=== PATIENT | male | born 1980 | race Two or more races ===

== ENCOUNTER 2024-06-07 04:19 | Inpatient (IN) | payer MEDICAID, OTHER ==
[~2024-06-07] VITALS: Ht 182.9 cm; Wt 86.0 kg
--- NOTE | 2024-06-07 04:40 | ED.PDOC ---
HPI Comments 44-year-old male came to ER for chest pains. Patient states he has been having intermittent episodes of chest pains for the past few months, he has not seen a sld teacher regarding this issue. Patient had a disagreement with his earlier and he got kicked out of the house. He started having left sided chest pains again which worsened prompting him to go to the ER. Patient is intoxicated with alcohol at this time of care. Chief Complaint: Chest Pain Time Seen by MD: 04:39 Reviewed Notes: Cook Chill Technician Notes Allergies: Coded Allergies: NO KNOWN ALLERGIES (Unverified , 06/07/24) Information Source: Patient Mode of Arrival: EMS Severity: Moderate Timing: Hours Duration: Intermittent Prehospital treatment: None Past Medical History PAST MEDICAL HISTORY: Denies Surgical History: Denies all surgeries Family History Family History: Reviewed,noncontributory to illness Social History Smoker: Non-Smoker Alcohol: Denies ETOH Use Drugs: Denies Drug Use Lives In: Home Constitutional: denies: chills, diaphoresis, fatigue, fever, malaise, sweats, weakness, others EENTM: denies: blurred vision, double vision, ear bleeding, ear discharge, ear drainage, ear pain, ear ringing, eye pain, eye redness, hearing loss, mouth pain, mouth swelling, nasal discharge, nose bleeding, nose congestion, nose pain, photophobia, tearing, throat pain, throat swelling, voice changes, others Respiratory: denies: cough, hemoptysis, orthopnea, SOB at rest, shortness of breath, SOB with excertion, stridor, wheezing, others Cardiovascular: reports: chest pain; denies: dizzy spells, diaphoresis, Dyspnea on exertion, edema, irregular heart beat, left arm pain, lightheadedness, palpitations, PND, syncope, others Gastrointestinal: denies: abdomen distended, abdominal pain, blood streaked bowels, constipated, diarrhea, dysphagia, difficulty swallowing, hematemesis, melena, nausea, poor appetite, poor fluid intake, rectal bleeding, rectal pain, vomiting, others Genitourinary: denies: burning, dysuria, flank pain, frequency, hematuria, incontinence, penile discharge, penile sore, pain, testicle pain, testicle swelling, urgency, others Neurological: denies: dizziness, fainting, headache, left sided numbness, left sided weakness, numbness, paresthesia, pre-existing deficit, right sided numbness, right sided weakness, seizure, speech problems, tingling, tremors, weakness, others Musculoskeletal: denies: back pain, gout, joint pain, joint swelling, muscle pain, muscle stiffness, neck pain, others Integumetry: denies: bruises, change in color, change in hair/nails, dryness, laceration, lesions, lumps, rash, wounds, others Allergic/Immunocompromised: denies: Difficulty Healing, Frequent Infections, Hives, Itching, others Hematologic/Lymphatic: denies: anemia, blood clots, easy bleeding, easy bruising, swollen glands, others Endocrine: denies: excessive hunger, excessive sweating, excessive thirst, excessive urination, flushing, intolerance to cold, intolerance to heat, unexplained weight gain, unexplained weight loss, others Psychiatric: reports: anxiety; denies: bipolar disorder, depression, hopeless, panic disorder, schizophrenia, sleepless, suicidal, others Physical Exam General Appearance: No Apparent Distress, Normal HEENT: Normal ENT Inspection, Pharynx Normal, TMs Normal Neck: Full Range of Motion, Non-Tender, Normal, Normal Inspection Respiratory: Chest Non-Tender, Lungs Clear, No Accessory Muscle Use, No Respiratory Distress, Normal Breath Sounds Cardiovascular: No Edema, No JVD, No Murmur, No Gallop, Normal Peripheral Pulses, Regular Rate/Rhythm Breast Exam: Deferred Gastrointestinal: No Organomegaly, Non Tender, No Pulsatile Mass, Normal Bowel Sounds, Soft Genitalia: Deferred Pelvic: Deferred Rectal: Deferred Extremities: No calf tenderness, Normal capillary refill, Normal inspection, Normal range of motion, Non-tender, No pedal edema Musculoskeletal : Apperance: Normal 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 Was a procedure done?: No CP Differential Dx Differential Diagnosis: Angina, Anxiety / Panic Attack Differential Diagnosis: Angina, Chest Wall Pain, Costochondritis, Esophageal reflux/spasm, Gastritis, Myocardial Infarction X-Ray, Labs, Meds, VS Vital Signs Date Time Temp Pulse Resp B/P (MAP) Pulse Ox O2 Delivery O2 Flow Rate FiO2 06/07/24 04:19 98.6 98 16 148/84 (105) 98 06/07/24 04:19 52 Lab Test 06/07/24 04:41 Range/Units White Blood Count 5.0 4.4-10.8 10^3/uL Red Blood Count 4.27 L 4.5-5.90 10^6/uL Hemoglobin 14.7 13.5-17.5 g/dL Hematocrit 44.1 41.0-53.0 % Mean Corpuscular Volume 103.1 H 80.0-100.0 fL Mean Corpuscular Hemoglobin 34.4 H 28.0-32.0 pg Mean Corpuscular Hemoglobin Concent 33.4 32.0-36.0 g/dL Red Cell Distribution Width 13.0 11.8-14.3 % Platelet Count 204 140-450 10^3/uL Mean Platelet Volume 7.1 6.9-10.8 fL Neutrophils (%) (Auto) 32.7 L 37.0-80.0 % Lymphocytes (%) (Auto) 53.8 H 10.0-50.0 % Monocytes (%) (Auto) 10.9 0.0-12.0 % Eosinophils (%) (Auto) 1.7 0.0-7.0 % Basophils (%) (Auto) 0.9 0.0-2.0 % Neutrophils # (Auto) 1.6 1.6-8.6 10 ^3/uL Lymphocytes # (Auto) 2.7 0.4-5.4 10 ^3/uL Monocytes # (Auto) 0.5 0-1.3 10 ^3/uL Eosinophils # (Auto) 0.1 0-0.8 10 ^3/uL Basophils # (Auto) 0 0-0.2 10 ^3/uL Nucleated Red Blood Cells 0.2 % Sodium Level 137 136-145 mmol/L Potassium Level 4.3 3.5-5.1 mmol/L Chloride Level 105 98-107 mmol/L Carbon Dioxide Level 18 L 20-31 mmol/L Anion Gap 14 5-15 Blood Urea Nitrogen 8 L 9-23 mg/dL Creatinine 1.21 0.700-1.30 mg/dL Glomerular Filtration Rate Calc 75 >90 mL/min BUN/Creatinine Ratio 6.6 L 10.0-20.0 Serum Glucose 106 74-106 mg/dL Calcium Level 9.4 8.7-10.4 mg/dL Troponin I High Sensitivity 26 </=54 ng/L Plasma/Serum Blood Alcohol 295.1 H <10 mg/dL Time of 1ST Reevaluation: 04:31 Reevaluation 1ST: Unchanged Patient Education/Counseling: Diagnosis, Treatment Family Education/Counseling: No Family Present Departure 1 Departure Time of Disposition: 05:49 (Patient presented with chest pain that was concerning for possible STEMI, ACS, PE, Pneumonia, Muscle Strain, COPD, Dissection. Data: 1. I ordered and reviewed the result of at least 3 labs including a CBC, BMP, and Troponin. 2. I independently interpreted the following tests: EKG which shows sinus arrhythmia and Chest X-ray which shows pleural effusions.Risk:This patient has a high risk of morbidity due to further diagnostic testing or treatment and may suffer from an acute cardiac or res piratory disorder. Workup reveals concern for ACS and patient should be admitted for further workup and possible expert consultation. ) Impression: Primary Impression: Acute chest pain Additional Impression: Alcohol intoxication Qualified Codes: F10.920 - Alcohol use, unspecified with intoxication, uncomplicated Disposition: 09 ADMITTED INPATIENT Admit to: Med Surg Condition: Serious Critical Care Note Critical Care Time?: No Stability Stability form required: No Heart Score Heart Score: Heart Score Response (Comments) Value History Moderate Suspicious 1 EKG Repolarization Disturb 1 Age 45-64 1 Risk Factors 1 or 2 risk factors 1 Troponin 1-2 x's Normal limit 1 Total 5 I personally scribed for KATHARINE COLEY MD ([email or web address]) on 06/07/24 at 04:40. Electronically submitted by Mikhail Kim ([facility] KATHARINE COLEY MD Jun 07, 2024 04:40
[2024-06-07 04:56] LABS: Basophils # (auto) 0 10 ^3/uL (0-0.2); Basophils % (auto) 0.9 % (0.0-2.0); Eosinophils # (auto) 0.1 10 ^3/uL (0-0.8); Eosinophils % (auto) 1.7 % (0.0-7.0); Hematocrit 44.1 % (41.0-53.0); Hemoglobin 14.7 g/dL (13.5-17.5); Lymphocytes # (auto) 2.7 10 ^3/uL (0.4-5.4); Lymphocytes % (auto) 53.8 % (10.0-50.0); Mean Corpuscular Hemoglobin 34.4 pg (28.0-32.0); Mean Corpuscular Hgb Conc. 33.4 g/dL (32.0-36.0); Mean Corpuscular Volume 103.1 fL (80.0-100.0); Monocytes # (auto) 0.5 10 ^3/uL (0-1.3); Monocytes % (auto) 10.9 % (0.0-12.0); Neutrophils # (auto) 1.6 10 ^3/uL (1.6-8.6); Neutrophils % (auto) 32.7 % (37.0-80.0); Nucleated Red Blood Cells % 0.2 %; Platelet Count (auto) 204 10^3/uL (140-450); Red Blood Cells 4.27 10^6/uL (4.5-5.90)
--- NOTE | 2024-06-07 05:08 | DVH ---
EXAM: XY CHEST PORTABLE HISTORY: chest pain COMPARISON: None TECHNIQUE: Portable upright AP view of the chest was performed. FINDINGS: There is mild right basilar opacity and mildly elevated right hemidiaphragm. No pneumothorax or pulmo nary edema. There is central peribronchial thickening. The heart is not enlarged. IMPRESSION: 1. Mild right basilar opacity and mildly elevated right hemidiaphragm may be due to chronic scarring versus mild atelectasis and small pleural effusion. Comparison with old films would be necessary to m robert this distinction. 2. Central peribronchial thickening consistent with reactive airways disease.
[2024-06-07 05:12] LABS: Anion Gap 14 (5-15); Chloride 105 mmol/L (98-107); Potassium 4.3 mmol/L (3.5-5.1); Sodium 137 mmol/L (136-145)
[2024-06-07 05:13] LABS: Calcium 9.4 mg/dL (8.7-10.4)
[2024-06-07 05:18] LABS: BUN/Creatinine Ratio 6.6 (10.0-20.0); Glucose 106 mg/dL (74-106)
[2024-06-07 05:28] LABS: Blood Alcohol 295.1 mg/dL (<10); Blood Urea Nitrogen 8 mg/dL (9-23); Carbon Dioxide 18 mmol/L (20-31)
--- NOTE | 2024-06-07 07:04 | ECG ---
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
[2024-06-07] MEDS: THIAMINE HCL 100 MG TAB PO ONE (07:15)
[2024-06-07] MEDS ORDERED: NITROGLYCERIN 0.4 MG SL TAB SL PRN ×2 (07:15)
[2024-06-07] MEDS: chlordiazePOXIDE HCL 25 MG CAP PO ONE (07:15)
[2024-06-07] MEDS ORDERED: LORazepam 2MG/ML-1ML VIAL IV PRN (07:15)
[2024-06-07] MEDS ORDERED: MORPHINE SULFATE 4 MG/ML SYR/VIAL IV PRN (07:15)
[2024-06-07] MEDS ORDERED: MORPHINE SULFATE INJ 2 MG/ml SYRG IV PRN (07:15)
[2024-06-07] MEDS: ONDANSETRON HCL 4 MG/2 ML VIAL IV ONE (07:15)
[2024-06-07] MEDS: SODIUM CHLORIDE 0.9% 1,000 ML IVB ONE (07:15)
[2024-06-07 07:28] VITALS: BP 131/70; PULSE 51; RESP 18; TEMP 98.2; O2SAT 97
[2024-06-07] MEDS ORDERED: ALBUTEROL SULF 2.5 MG/0.5ML(0.5%) NEB SOLN NEB PRN (07:30)
[2024-06-07] MEDS ORDERED: IPRATROPIUM BROM 0.5 MG/2.5ML INH SOL NEB PRN (07:30)
--- NOTE | 2024-06-07 07:30 | DVHHP2 ---
History of Present Illness Reason for Visit: Chest pain History of Present Illness Naren Valentine is a 44-year-old male with no past medical history who presents to the ED with chest pain that started at 1:00 a.m. this morning. It was noted in ER documentation that patient was arguing with his and was kicked out of the house. Patient reports that there is discomfort but not actual pain. He states that resting makes it better and stress makes it worse. Patient reports that he smokes 1 pack of cigarettes per day does not use illicit drugs and drinks 2-3 beers per day along with 1 glass of cognac per day. Patient denies any hallucinations, tremors, visual disturbances, headaches, nausea, vomiting, a nxiousness, diarrhea, abdominal pain, shortness of breath, fever, chills, recent sick contacts, recent trauma or injury, lightheadedness, and dizziness. Past Surgical History: None Family History: None Smoke: 1 pack per day ALCOHOL: heavy Drugs: None Lives: with Family Domestic Violence: Neg Review of Systems Constitutional: No: Fever, Chills, Sweats, Weakness, Malaise, Other Eyes: No: Pain, Vision change, Conjunctivae inflammation, Eyelid inflammation, Other, Redness ENT: No: Ear pain, Ear discharge, Nose pain, Nose discharge, Nose congestion, Mouth pain, Mouth swelling, Throat pain, Throat swelling, Other Respiratory: No: Cough, Dry, Shortness of breath, SOB with excertion, Wheezing, Hemoptysis, Pleuritic Pain, Sputum, Wheezing, Other Cardiovascular: Chest Pain; No: Palpitations, Orthopnea, Paroxysmal Noc. Dyspnea, Edema, Lt Headedness, Other Gastrointestinal: No: Nausea, Vomiting, Abdominal Pain, Diarrhea, Constipation, Melena, Hematochezia, Other Genitourinary: No Dysuria, No Frequency, No Incontinence, No Hematuria, No Retention, No Other Musculoskeletal: No: other, neck pain, shoulder pain, arm pain, back pain, hand pain, leg pain, foot pain Skin: No: Rash, Lesions, Jaundice, Bruising, Other Neurological: No: Weakness, Numbness, Incoordination, Change in speech, Confusion, Seizures, Other Allergies: Coded Allergies: NO KNOWN ALLERGIES (Unverified , 06/07/24) Medications Current Medications Medications Dose Ordered Sig/Emely Route Start Time Stop Time Status Last Admin Dose Admin Aspirin 81 mg DAILY PO 06/07/24 10:00 UNV Atorvastatin Calcium 40 mg HS PO 06/07/24 22:00 UNV Morphine Sulfate 2 mg Q30MP PRN IV 06/07/24 07:15 UNV Nitroglycerin 0.4 mg Q5MINP PRN SL 06/07/24 07:15 UNV Nitroglycerin 0.4 mg Q5MINP PRN SL 06/07/24 07:15 UNV Morphine Sulfate 2 mg Q30M PRN IV 06/07/24 07:15 UNV Thiamine HCl 100 mg DAILY PO 06/07/24 10:00 UNV Lorazepam 1 mg Q2HPRN PRN IV 06/07/24 07:15 UNV Exam Vital Signs Vital Signs Date Time Temp Pulse Resp B/P (MAP) Pulse Ox O2 Delivery O2 Flow Rate FiO2 06/07/24 04:19 98.6 98 16 148/84 (105) 98 General Appearance: Alert, Oriented X3, Cooperative, No acute distress HEENT: Atraumatic, PERRLA, EOMI, Mucous membr. moist/pink Respiratory: Normal air movement Cardiovascular: Normal S1, Normal S2, No murmurs Abdominal: Normal bowel sounds, Soft, No tenderness, No hepatospenomegaly, No masses Extremities: No clubbing, No cyanosis, No edema, Normal pulses, No tender ness/swelling Skin: No rashes, No breakdown, No significant lesion Neuro: Normal gait, Normal speech, Strength at 5/5 X4 ext, Normal tone, Sensation intact Psych/Mental Status: Mental status NL, Mood NL Labs/Xrays Labs Test 06/07/24 05:49 06/07/24 04:41 Range/Units Troponin I High Sensitivity 22 </=54 ng/L White Blood Count 5.0 4.4-10.8 10^3/uL Red Blood Count 4.27 L 4.5-5.90 10^6/uL Hemoglobin 14.7 13.5-17.5 g/dL Hematocrit 44.1 41.0-53.0 % Mean Corpuscular Volume 103.1 H 80.0-100.0 fL Mean Corpuscular Hemoglobin 34.4 H 28.0-32.0 pg Mean Corpuscular Hemoglobin Concent 33.4 32.0-36.0 g/dL Red Cell Distribution Width 13.0 11.8-14.3 % Platelet Count 204 140-450 10^3/uL Mean Platelet Volume 7.1 6.9-10.8 fL Neutrophils (%) (Auto) 32.7 L 37.0-80.0 % Lymphocytes (%) (Auto) 53.8 H 10.0-50.0 % Monocytes (%) (Auto) 10.9 0.0-12.0 % Eosinophils (%) (Auto) 1.7 0.0-7.0 % Basophils (%) (Auto) 0.9 0.0-2.0 % Neutrophils # (Auto) 1.6 1.6-8.6 10 ^3/uL Lymphocytes # (Auto) 2.7 0.4-5.4 10 ^3/uL Monocytes # (Auto) 0.5 0-1.3 10 ^3/uL Eosinophils # (Auto) 0.1 0-0.8 10 ^3/uL Basophils # (Auto) 0 0-0.2 10 ^3/uL Nucleated Red Blood Cells 0.2 % Sodium Level 137 136-145 mmol/L Potassium Level 4.3 3.5-5.1 mmol/L Chloride Level 105 98-107 mmol/L Carbon Dioxide Level 18 L 20-31 mmol/L Anion Gap 14 5-15 Blood Urea Nitrogen 8 L 9-23 mg/dL Creatinine 1.21 0.700-1.30 mg/dL Glomerular Filtration Rate Calc 75 >90 mL/min BUN/Creatinine Ratio 6.6 L 10.0-20.0 Serum Glucose 106 74-106 mg/dL Calcium Level 9.4 8.7-10.4 mg/dL Plasma/Serum Blood Alcohol 295.1 H <10 mg/dL EXAM: XY CHEST PORTABLE HISTORY: chest pain COMPARISON: None TECHNIQUE: Portable upright AP view of the chest was performed. FINDINGS: There is mild right basilar opacity and mildly elevated right hemidiaphragm. No pneumothorax or pulmonary edema. There is central peribronchial thickening. The heart is not enlarged. IMPRESSION: 1. Mild right basilar opacity and mildly elevated right hemidiaphragm may be due to chronic scarring versus mild atelectasis and small pleural effusion. Comparison with old films would be necessary to make this distinction. 2. Central peribronchial thickening consistent with reactive airways disease. Assessment/Plan Assessment/Plan Assessment/Plan: Chest pain r/o ACS RAD ? COPD Labs Troponin negative x2 TSH Lipid A1c Echo IVf Respiratory treatments UA UDS IV antibiotics-ceftriaxone EKG ACS protocol Chest x-ray noted ETOH abuse Counseled patient on cessation of EtOH use Tobacco use Counseled patient on cessation of tobacco use FEN/PPX Diet Hep-Lock DVT prophylaxis not indicated patient ambulating PUD prophylaxis not indicated no history of GERD or GI bleed No home medications to reconcile Discussed plan of care with patient and nurse Admit to tele Plan discussed with: Patient My Orders Orders - KUSUM KENDRICK Procedure Category Date Status Time Admit ADMIT 06/07/24 Transmitted 07:07 Code Status CODE 06/07/24 Transmitted 07:07 Vital Signs OLI 06/07/24 In Process 07:07 Excelsior Picker OLI 06/07/24 In Process 07:07 Cardiac DIET 06/07/24 Transmitted Diet-2gna,Lofat,Lochol Breakfast Aspirin Tablet PHA 06/07/24 Logged 10:00 Atorvastatin (Lipitor) PHA 06/07/24 Logged 22:00 Morphine Sulfate PHA 06/07/24 Logged Injection 07:15 Complete Blood Count LAB 06/08/24 Verified 04:00 Complete Blood Count LAB 06/07/24 Logged 04:00 Nitroglycerin PHA 06/07/24 Logged Sublingual (Ntrostat 07:15 Electrocardigram EKG 06/08/24 Logged 04:00 Troponin-I Hs LAB 06/07/24 Logged 07:07 Cardiac OLI 06/07/24 In Process Rehabilitation - Outpa Nitroglycerin PHA 06/07/24 Logged Sublingual (Ntrostat 07:15 Morphine Sulfate PHA 06/07/24 Logged Injection 07:15 Stat Ekg For Chest OLI 06/07/24 In Process Pain 07:07 Notify Of Changes OLI 06/07/24 In Process From Base 07:07 Client Relationship Manager For OLI 06/07/24 In Process 24 Hours 07:07 Emergency Dysrhythmia OLI 06/07/24 In Process Protocol 07:07 Rhythm Strips Once OLI 06/07/24 In Process Every Shift 07:07 Oxygen By Nasal RT 06/07/24 Transmitted Cannula 07:07 Drug Screen LAB 06/07/24 Logged 07:07 Urinalysis LAB 06/07/24 Logged 07:07 Sodium Chloride 0.9% PHA 06/07/24 Logged 07:15 Chlordiazepoxide Hcl PHA 06/07/24 Logged Capsule (Librium Ca 07:15 Ondansetron Hcl PHA 06/07/24 Logged (Zofran) 07:15 Magnesium LAB 06/07/24 Logged 07:07 Thiamine Tab PHA 06/07/24 Logged 10:00 Thiamine Tab PHA 06/07/24 Logged 07:15 Lorazepam 2mg/Ml Inj PHA 06/07/24 Logged (Ativan Inj) 07:15 Etoh Withdrawal OLI 06/07/24 In Process Assessment 07:07 Etoh Withdrawal OLI 06/07/24 In Process Assessment 07:07 Thyroid Stimulating LAB 06/07/24 Logged Hormone 07:15 Lipid Panel LAB 06/07/24 Logged 07:15 Echo 2d Mode Cardiac US 06/07/24 Logged DOP 07:15 Hemoglobin A1c LAB 06/07/24 Transmitted 07:16 Ceftriaxone Ivpb PHA 06/07/24 Verified Rocephin 09:00 Date of Service: Jun 07, 2024 Billing Provider: KUSUM KENDRICK Common Visit Codes: [id number] INP/OBS CARE (HIGH) KUSUM KENDRICK Jun 07, 2024 07:30
[2024-06-07 08:23] LABS: Magnesium 2.4 mg/dL (1.6-2.6)
[2024-06-07] MEDS: cefTRIAXone 1GM/50ML D5W 50 ML IV SCH (08:44)
[2024-06-07] MEDS: ASPirin 81 mg TAB PO SCH (10:00)
[2024-06-07] MEDS ORDERED: ATORVASTATIN 20 MG TAB PO SCH (22:00)
[2024-06-08] MEDS ORDERED: THIAMINE HCL 100 MG TAB PO SCH (10:00)
== END 2024-06-07 10:47 | disposition left against medical advice (07) | DRG 816 ==
LOC: EDBD 04:19 → ER 04:19 → OVERFLOW 07:07
DX: T51.91XA Toxic effect of unspecified alcohol, accidental (unintentional), initial encounter (principal); I24.9 Acute ischemic heart disease, unspecified; J44.9 Chronic obstructive pulmonary disease, unspecified; Z53.29 Procedure and treatment not carried out because of patient's decision for other reasons; Y92.009 Unspecified place in unspecified non-institutional (private) residence as the place of occurrence of the external cause; F17.210 Nicotine dependence, cigarettes, uncomplicated; Z79.899 Other long term (current) drug therapy; Y90.8 Blood alcohol level of 240 mg/100 ml or more
CPT/HCPCS: 36415; 71045; 80048; 80061; 80320; 83036; 83735; 84443; 84484; 85025; 93005; G0378; J2405